=== PATIENT | female | born 1985 | race American Indian/Alaskan Native ===

== ENCOUNTER 2017-05-10 12:23 | Emergency (ER) | payer MEDICAID ==
[2017-05-10 12:55] VITALS: BP 139/92
[2017-05-10] MEDS ORDERED: TYLENOL PO ONE (15:14)
--- NOTE | 2017-05-10 15:17 | Emergency Department Report ---
Upper Extremity - HPI Chief Complaint: Extremity Problem,Nontraumatic Stated Complaint: RIGHT HAND NUMBNESS Time Seen by Provider: 05/10/17 14:41 Upper Extremity: Right Wrist Severity: moderate Symptoms: Yes Pain with Movement, Yes Limited Range of Movement, Yes Numbness, No Deformity, No Weakness, No Swelling, No Bruising/Ecchymosis, No Laceration or Abrasion Other History: 32-year-old female past medical history ED Review of Systems ROS: Stated complaint: RIGHT HAND NUMBNESS Other details as noted in HPI Constitutional: denies: chills, fever Eyes: denies: eye pain, eye discharge, vision change ENT: denies: ear pain, throat pain Respiratory: denies: cough, shortness of breath, wheezing Cardiovascular: denies: chest pain, palpitations Endocrine: no symptoms reported Gastrointestinal: denies: abdominal pain, nausea, diarrhea Genitourinary: denies: urgency, dysuria, discharge Musculoskeletal: as per HPI (intermittent wrist pain for over 1 month). denies : back pain, joint swelling, arthralgia Skin: denies: rash, lesions Neurological: denies: headache, weakness, paresthesias Psychiatric: denies: anxiety, depression Hematological/Lymphatic: denies: easy bleeding, easy bruising ED Past Medical Hx - Past Medical History Previous Medical History?: No - Surgical History Past Surgical History?: Yes Additional Surgical History: Breast augmentation - Social History Smoking Status: Never Smoker Substance Use Type: None - Medications Home Medications: Home Medications Medication Instructions Recorded Confirmed Last Taken Type Acetaminophen 500 mg PO Q8H PRN #30 capsule 05/10/17 Unknown Rx Upper Extremity Exam - Exam General: Vital signs noted. No distress. Alert and acting appropriately. ED Course Vital Signs 05/10/17 12:51 Temperature 98.4 F Pulse Rate 84 Respiratory 16 Rate Blood Pressure 139/92 O2 Sat by Pulse 97 Oximetry ED Medical Decision Making - Medical Decision Making A/P: carpal tunnel of 1- 2- 3- 4- Critical care attestation.: If time is entered above; I have spent that time in minutes in the direct care of this critically ill patient, excluding procedure time. ED Disposition Clinical Impression: Carpal tunnel syndrome during Disposition: - TO HOME OR SELFCARE Is pt being admited?: No Does the pt Need Aspirin: No Condition: Stable Instructions: Carpal Tunnel Syndrome (ED) Prescriptions: Acetaminophen 500 mg PO Q8H PRN #30 capsule PRN Reason: Pain Referrals: [facility] [Outside] - 3-[address] [facility] [Provider Group] - 3-5 Days Forms: Work/School Release Form(ED) Time of Disposition: 15:14
== END 2017-05-10 15:24 | disposition home or self-care (01) ==
LOC: ED 12:23
DX: O26.891 Other specified pregnancy related conditions, first trimester (principal); G56.01 Carpal tunnel syndrome, right upper limb; Z3A.01 Less than 8 weeks gestation of pregnancy; X58.XXXA Exposure to other specified factors, initial encounter; Y93.89 Activity, other specified; Y92.89 Other specified places as the place of occurrence of the external cause; Y99.8 Other external cause status